=== PATIENT | male | born 1995 | race African-American/Black ===

== ENCOUNTER 2022-02-27 19:06 | Emergency (ER) | payer BC ==
[~2022-02-27] VITALS: Ht 175.3 cm; Wt 81.6 kg
[2022-02-27] MEDS ORDERED: AMOXICILLIN500 MG PO (20:59)
[2022-02-27] MEDS ORDERED: BROMFED DM COU118 ML PO (21:01)
== END 2022-02-27 21:13 | disposition home or self-care (01) ==
LOC: FSED 19:19
DX: J02.0 Streptococcal pharyngitis (principal); J10.1 Influenza due to other identified influenza virus with other respiratory manifestations; B34.9 Viral infection, unspecified
CPT/HCPCS: 83518; 87400; 99283

== ENCOUNTER 2022-07-22 12:54 | Emergency (ER) | payer BC ==
[~2022-07-22] VITALS: Ht 175.3 cm; Wt 82.6 kg
[~2022-07-22 12:54] MED LIST: AMOXICILLIN500 MG PO; BROMFED DM COU118 ML PO
[2022-07-22] MEDS ORDERED: FAMOTIDINE 20 MG/2 ML VIAL IV ONE ×2 (13:25→13:30)
[2022-07-22] MEDS ORDERED: OMEPRAZOLE40 MG PO (13:49)
== END 2022-07-22 14:14 | disposition home or self-care (01) ==
LOC: FSED 13:03
DX: R07.89 Other chest pain (principal); K21.9 Gastro-esophageal reflux disease without esophagitis; R94.31 Abnormal electrocardiogram [ECG] [EKG]
CPT/HCPCS: 71046; 80053; 81003; 82553; 84484; 85025; 85379; 93005; 99284

== ENCOUNTER 2024-01-26 16:39 | Emergency (ER) | payer BC ==
[~2024-01-26] VITALS: Ht 175.3 cm; Wt 81.7 kg
[~2024-01-26 16:39] MED LIST changes: +OMEPRAZOLE40 MG PO
[2024-01-26] MEDS ORDERED: AMOXICILLIN500 MG PO (17:27)
[2024-01-26] MEDS: ACETAMINOPHEN 325 MG TAB PO ONE (17:30)
[2024-01-26 17:50] VITALS: PULSE 78; RESP 16; TEMP 98.7; O2SAT 97
== END 2024-01-26 17:30 | disposition home or self-care (01) ==
LOC: FSED 16:44
DX: J02.9 Acute pharyngitis, unspecified (principal); Z11.52 Encounter for screening for COVID-19
CPT/HCPCS: 0223U; 83518; 87400; 99283